=== PATIENT | female | born 1975 | race Caucasian/White ===

== ENCOUNTER 2016-10-31 08:55 | Day surgery (SDC) | payer BC ==
[2016-10-31 09:37] LABS: BASOPHIL 0.8 % (0-2.0); MCH 26.8 pg (25.7-33.7); MCHC 32.6 g/dl (32.0-36.0); MEAN CELL VOLUME 82.3 fl (80-96); MEAN PLT VOLUME 11.5 fl (7.5-11.1); NEUTROPHILS 62.7 % (42.8-82.8); WHITE BLOOD COUNT 6.6 K/mm3 (4.0-10.0)
[2016-10-31 09:55] LABS: ALBUMIN 3.9 g/dl (3.4-5.0); ANION GAP 9 (8-16); BILIRUBIN,TOTAL 0.5 mg/dL (0.2-1.0); CALCIUM 8.9 mg/dL (8.5-10.1); CO2 25 mmol/L (21-32); COCKROFT - GAULT 0; CREATININE 0.4 mg/dL (0.55-1.02); GLUCOSE,RANDOM 86 mg/dL (74-106); MAGNESIUM 2.1 mg/dL (1.8-2.4); SGOT/AST 21 U/L (15-37); SGPT/ALT 25 U/L (12-78); TOT PROT 6.8 g/dl (6.4-8.2)
[2016-10-31 09:56] LABS: ALK PHOS 78 U/L (45-117)
[2016-10-31] MEDS ORDERED: methylPREDNISolone NA SUCC 125 MG/2 ML VIAL IVPB ONE (10:00)
[2016-10-31] MEDS ORDERED: ACETAMINOPHEN 500 MG TABLET (FP) PO ONE (10:00)
[2016-10-31] MEDS ORDERED: diphenhydrAMINE HCL 25 MG CAPSULE (FP) PO ONE (10:00)
[2016-10-31 10:25] LABS: PLATELET ESTIMATE ADEQUATE (NORMAL)
[2016-10-31] MEDS ORDERED: RITUXIMAB 1,000 MG in SODIUM CHLORIDE 400 ML IVPB ONE (11:00)
[2016-10-31 15:14] VITALS: BP 108/69; PULSE 89; TEMP 98.6
== END 2016-10-31 19:11 | disposition home or self-care (01) ==
LOC: JINFUSION 08:55 → J7W 09:01 → JINFUSION 19:11
PROVIDERS: ATTEND Specialist
PROC: 3E033GC Introduction of Other Therapeutic Substance into Peripheral Vein, Percutaneous Approach (ICD-10-PCS; principal; 2016-10-31)
DX: G35 Multiple sclerosis (principal); M05.89 Other rheumatoid arthritis with rheumatoid factor of multiple sites
CPT/HCPCS: 96365; 96366; J9310; 36415; 80053; 83735; 84134; 85025

== ENCOUNTER 2016-11-11 09:51 | Day surgery (SDC) | payer BC ==
[2016-11-11 10:13] LABS: EOSINOPHIL 0.8 % (0-4.5); MCH 26.9 pg (25.7-33.7); MEAN CELL VOLUME 81.5 fl (80-96); MEAN PLT VOLUME 10.8 fl (7.5-11.1); NEUTROPHILS 70.4 % (42.8-82.8); PLATELET COUNT 204 K/MM3 (134-434); WHITE BLOOD COUNT 7.7 K/mm3 (4.0-10.0)
[2016-11-11 10:33] VITALS: TEMP 97.7
[2016-11-11 10:39] LABS: ALBUMIN 3.6 g/dl (3.4-5.0); ANION GAP 10 (8-16); BILIRUBIN,TOTAL 0.8 mg/dL (0.2-1.0); CO2 27 mmol/L (21-32); CREATININE 0.5 mg/dL (0.55-1.02); GLUCOSE,RANDOM 81 mg/dL (74-106); SGOT/AST 15 U/L (15-37); SGPT/ALT 21 U/L (12-78); TOT PROT 6.3 g/dl (6.4-8.2)
[2016-11-11 10:41] LABS: ALK PHOS 71 U/L (45-117)
[2016-11-11] MEDS ORDERED: ACETAMINOPHEN 500 MG TABLET (FP) PO ONE (11:00)
[2016-11-11] MEDS ORDERED: methylPREDNISolone NA SUCC 125 MG/2 ML VIAL IVPB ONE (11:00)
[2016-11-11] MEDS ORDERED: diphenhydrAMINE HCL 25 MG CAPSULE (FP) PO ONE (11:00)
[2016-11-11] MEDS ORDERED: RITUXIMAB 1,000 MG in SODIUM CHLORIDE 400 ML IVPB ONE (12:00)
[2016-11-11 15:21] VITALS: BP 109/68; PULSE 83
== END 2016-11-11 17:06 | disposition home or self-care (01) ==
LOC: J7W 09:51 → JINFUSION 09:51 → J7W 09:59 → JINFUSION 17:06
PROVIDERS: ATTEND Specialist
PROC: 3E033GC Introduction of Other Therapeutic Substance into Peripheral Vein, Percutaneous Approach (ICD-10-PCS; principal; 2016-11-11)
DX: G35 Multiple sclerosis (principal); M05.89 Other rheumatoid arthritis with rheumatoid factor of multiple sites
CPT/HCPCS: 96365; 96366; J9310; 36415; 80053; 83735; 84134; 85025

== ENCOUNTER 2017-10-24 08:57 | Day surgery (SDC) | payer BC ==
[2017-10-24 09:30] LABS: BASO % 0.7 % (0-2.0); EOS % 1.1 % (0-4.5); HEMATOCRIT 38.9 % (32.4-45.2); HEMOGLOBIN 12.8 GM/dL (10.7-15.3); LYMPH % 24.3 % (8-40); MCH 27.2 pg (25.7-33.7); MEAN CELL VOLUME 82.5 fl (80-96); MEAN PLT VOLUME 10.5 fl (7.5-11.1); MONO % 9.2 % (3.8-10.2); NEUT % 64.7 % (42.8-82.8); PLATELET COUNT 197 K/MM3 (134-434); RBC 4.72 M/mm3 (3.60-5.2); RDW 13.7 % (11.6-15.6); WHITE BLOOD COUNT 5.9 K/mm3 (4.0-10.0)
[2017-10-24] MEDS ORDERED: diphenhydrAMINE HCL 25 MG CAPSULE (FP) PO ONE (10:00)
[2017-10-24] MEDS ORDERED: methylPREDNISolone NA SUCC 125 MG/2 ML VIAL IVPB ONE (10:00)
[2017-10-24] MEDS ORDERED: ACETAMINOPHEN 500 MG TABLET (FP) PO ONE (10:00)
[2017-10-24 10:03] LABS: ALBUMIN 3.8 g/dl (3.4-5.0); ANION GAP 4 (8-16); BLOOD UREA NITROGEN 9 mg/dL (7-18); CALCIUM 8.9 mg/dL (8.5-10.1); CHLORIDE 108 mmol/L (98-107); CO2 26 mmol/L (21-32); CREATININE 0.5 mg/dL (0.55-1.02); GLUCOSE,RANDOM 91 mg/dL (74-106); MAGNESIUM 2.2 mg/dL (1.8-2.4); POTASSIUM 4.5 mmol/L (3.5-5.1); SGOT/AST 16 U/L (15-37); SGPT/ALT 17 U/L (12-78); SODIUM 138 mmol/L (136-145); TOT PROT 6.9 g/dl (6.4-8.2)
[2017-10-24 10:05] LABS: ALK PHOS 89 U/L (45-117); PREALBUMIN 21.3 mg/dl (20.-40)
[2017-10-24] MEDS ORDERED: RITUXIMAB IVPB ONE (10:30)
[2017-10-24] MEDS ORDERED: SODIUM CHLORIDE IVPB ONE (10:30)
[2017-10-24 16:18] VITALS: PULSE 89; TEMP 97.9
[2017-10-24 16:24] VITALS: BP 115/73
== END 2017-10-24 15:45 | disposition home or self-care (01) ==
LOC: JINFUSION 08:57 → J7W 08:59 → JINFUSION 15:45
PROVIDERS: ATTEND Specialist
DX: G35 Multiple sclerosis (principal)
CPT/HCPCS: 36415; 80053; 83735; 84134; 85025; 96365; 96366; J7030; J9310

== ENCOUNTER 2018-05-01 08:59 | Day surgery (SDC) | payer BC ==
[2018-05-01] MEDS ORDERED: diphenhydrAMINE HCL 25 MG CAPSULE (FP) PO ONE (09:00)
[2018-05-01] MEDS ORDERED: methylPREDNISolone NA SUCC 125 MG/2 ML VIAL IVPB ONE (09:00)
[2018-05-01] MEDS ORDERED: ACETAMINOPHEN 500 MG TABLET (FP) PO ONE (09:00)
[2018-05-01 09:57] LABS: BASO % 0.7 % (0-2.0); EOS % 0.1 % (0-4.5); HEMATOCRIT 41.5 % (32.4-45.2); LYMPH % 11.7 % (8-40); MCH 27.8 pg (25.7-33.7); MCHC 33.6 g/dl (32.0-36.0); MEAN CELL VOLUME 82.6 fl (80-96); MEAN PLT VOLUME 10.6 fl (7.5-11.1); MONO % 5.5 % (3.8-10.2); PLATELET COUNT 238 K/MM3 (134-434); RBC 5.03 M/mm3 (3.60-5.2); RDW 13.4 % (11.6-15.6); WHITE BLOOD COUNT 10.9 K/mm3 (4.0-10.0)
[2018-05-01] MEDS ORDERED: RITUXIMAB IVPB ONE (10:00)
[2018-05-01] MEDS ORDERED: SODIUM CHLORIDE IVPB ONE (10:00)
[2018-05-01 10:56] LABS: ALBUMIN 4.2 g/dl (3.4-5.0); ALK PHOS 93 U/L (45-117); ANION GAP 10 MMOL/L (8-16); BILIRUBIN,TOTAL 1.2 mg/dL (0.2-1); BLOOD UREA NITROGEN 10 mg/dL (7-18); CALCIUM 9.1 mg/dL (8.5-10.1); CHLORIDE 107 mmol/L (98-107); CO2 25 mmol/L (21-32); CREATININE 0.5 mg/dL (0.55-1.3); GLUCOSE,RANDOM 79 mg/dL (74-106); MAGNESIUM 2.1 mg/dL (1.8-2.4); POTASSIUM 3.9 mmol/L (3.5-5.1); PREALBUMIN 21.9 mg/dl (20-40); SGOT/AST 21 U/L (15-37); SGPT/ALT 24 U/L (13-61); SODIUM 141 mmol/L (136-145); TOT PROT 7.3 g/dl (6.4-8.2)
[2018-05-01 16:07] VITALS: BP 122/75; PULSE 76; TEMP 97.9
[2018-05-05 00:06] LABS: CYCLIC CITRULLINE PEPTIDE AB 13 units (0-19)
== END 2018-05-01 14:10 | disposition home or self-care (01) ==
LOC: J7W 08:59 → JINFUSION 08:59
PROVIDERS: ATTEND Specialist
DX: G35 Multiple sclerosis (principal)
CPT/HCPCS: 36415; 80053; 83735; 84134; 85025; 86038; 86200; 86431; 96367; 96375; 96413; 96415; J7030; J9310

== ENCOUNTER 2018-10-16 08:27 | Day surgery (SDC) | payer BC ==
[~2018-10-16 08:27] MED LIST: ACETAMINOPHEN 500 MG TABLET (FP) PO ONE; diphenhydrAMINE HCL 25 MG CAPSULE (FP) PO ONE; methylPREDNISolone NA SUCC 125 MG/2 ML VIAL IVPB ONE
[2018-10-16] MEDS ORDERED: SODIUM CHLORIDE IVPB ONE (09:00)
[2018-10-16] MEDS ORDERED: RITUXIMAB IVPB ONE (09:00)
[2018-10-16 09:02] LABS: BASO % 0.7 % (0-2.0); EOS % 1.7 % (0-4.5); HEMATOCRIT 40.5 % (32.4-45.2); HEMOGLOBIN 13.2 GM/dL (10.7-15.3); LYMPH % 20.2 % (8-40); MCH 27.1 pg (25.7-33.7); MCHC 32.7 g/dl (32.0-36.0); MEAN CELL VOLUME 82.9 fl (80-96); MEAN PLT VOLUME 10.4 fl (7.5-11.1); MONO % 7.7 % (3.8-10.2); NEUT % 69.7 % (42.8-82.8); PLATELET COUNT 223 K/MM3 (134-434); RBC 4.88 M/mm3 (3.60-5.2); WHITE BLOOD COUNT 7.2 K/mm3 (4.0-10.0)
[2018-10-16 09:34] LABS: ALBUMIN 3.9 g/dl (3.4-5.0); ALK PHOS 79 U/L (45-117); ANION GAP 6 MMOL/L (8-16); BILIRUBIN,TOTAL 0.8 mg/dL (0.2-1); BLOOD UREA NITROGEN 10 mg/dL (7-18); CALCIUM 9.3 mg/dL (8.5-10.1); CHLORIDE 105 mmol/L (98-107); CO2 25 mmol/L (21-32); CREATININE 0.5 mg/dL (0.55-1.3); GLUCOSE,RANDOM 83 mg/dL (74-106); MAGNESIUM 2.3 mg/dL (1.8-2.4); POTASSIUM 4.5 mmol/L (3.5-5.1); PREALBUMIN 26.8 mg/dl (20-40); SGOT/AST 13 U/L (15-37); SGPT/ALT 20 U/L (13-61); SODIUM 137 mmol/L (136-145)
[2018-10-16 14:45] VITALS: BP 120/71; PULSE 88
[2018-10-16 14:46] VITALS: TEMP 98.6
== END 2018-10-16 14:46 | disposition home or self-care (01) ==
LOC: JINFUSION 08:27 → J7W 08:28 → JINFUSION 14:46
PROVIDERS: ATTEND Specialist
DX: G35 Multiple sclerosis (principal); M06.9 Rheumatoid arthritis, unspecified
CPT/HCPCS: 36415; 80053; 83735; 84134; 85025; 96367; 96375; 96413; 96415; J7030; J9312

== ENCOUNTER 2019-04-02 08:46 | Day surgery (SDC) | payer BC ==
[2019-04-02 09:32] LABS: BASO % 1.3 % (0-2.0); EOS % 1.2 % (0-4.5); HEMATOCRIT 38.9 % (32.4-45.2); MCH 28.3 pg (25.7-33.7); MCHC 33.3 g/dl (32.0-36.0); MEAN PLT VOLUME 11.2 fl (7.5-11.1); MONO % 5.9 % (3.8-10.2); NEUT % 74.6 % (42.8-82.8); PLATELET COUNT 187 K/MM3 (134-434); RBC 4.58 M/mm3 (3.60-5.2); RDW 13.3 % (11.6-15.6)
[2019-04-02 09:55] LABS: BILIRUBIN,TOTAL 1.1 mg/dL (0.2-1); BLOOD UREA NITROGEN 7.9 mg/dL (7-18); CALCIUM 9.1 mg/dL (8.5-10.1); CREATININE 0.5 mg/dL (0.55-1.3); MAGNESIUM 2.2 mg/dL (1.8-2.4); POTASSIUM 4.3 mmol/L (3.5-5.1); TOT PROT 6.7 g/dl (6.4-8.2)
[2019-04-02] MEDS ORDERED: ACETAMINOPHEN 500 MG TABLET (FP) PO ONE (11:00)
[2019-04-02] MEDS ORDERED: diphenhydrAMINE HCL 25 MG CAPSULE (FP) PO ONE (11:00)
[2019-04-02] MEDS ORDERED: methylPREDNISolone NA SUCC 125 MG/2 ML VIAL IVPB ONE (11:30)
[2019-04-02] MEDS ORDERED: RITUXIMAB IVPB ONE (12:00)
[2019-04-02] MEDS ORDERED: SODIUM CHLORIDE IVPB ONE (12:00)
[2019-04-02 18:49] VITALS: BP 113/67; PULSE 89; TEMP 99
== END 2019-04-02 17:35 | disposition home or self-care (01) ==
LOC: JINFUSION 08:46 → J7W 08:47 → JINFUSION 17:35
PROVIDERS: ATTEND Specialist
DX: M06.9 Rheumatoid arthritis, unspecified (principal); G35 Multiple sclerosis
CPT/HCPCS: 36415; 80053; 83735; 85025; 96365; 96366; 96367; 96375; 96413; 96415; J7030; J9312